=== PATIENT | female | born 2000 ===

== ENCOUNTER 2020-12-29 18:58 | Emergency (ER) | payer BC, SELFPAY ==
[2020-12-29] MEDS ORDERED: Ibuprofen 200 MG TAB ONE (20:14)
== END 2020-12-29 20:15 | disposition home or self-care (01) ==
LOC: CSHERS 18:58
DX: L03.116 Cellulitis of left lower limb (principal)
CPT/HCPCS: 99283

== ENCOUNTER 2023-09-14 14:40 | Emergency (ER) | payer BC, SELFPAY ==
[2023-09-14] MEDS ORDERED: Ketorolac Tromethamine 30 MG/ML VIAL ONE (16:16)
== END 2023-09-14 19:20 | disposition home or self-care (01) ==
LOC: CSHERS 14:40
DX: B37.31 Acute candidiasis of vulva and vagina (principal)
CPT/HCPCS: 76856; 87070; 87077; 87186; 87205; 87480; 87510; 87660; 96372; J1885